=== PATIENT | female | born 1955 | race Caucasian/White ===

== ENCOUNTER 2016-09-15 08:05 | Outpatient (CLI) | payer BC | END 2016-09-15 08:06 | disposition home or self-care (01) | DX: Z13.820 Encounter for screening for osteoporosis (principal); M85.88 Other specified disorders of bone density and structure, other site; Z78.0 Asymptomatic menopausal state ==

== ENCOUNTER 2020-03-06 10:59 | Outpatient (CLI) | payer MEDICARE, OTHER ==
--- NOTE | 2020-03-06 11:56 | CT Report ---
PROCEDURE: HEAD WO INDICATIONS: HEADACHE TECHNIQUE: Noncontrast 4.5 mm thick angled axial sections acquired from the foramen magnum to the vertex. For r adiation dose reduction, the following was used: automated exposure control, adjustment of mA and/or kV according to patient size. COMPARISON: None. FINDINGS: Image quality: Excellent. CSF spaces: Basal cisterns are patent. No extra-axial fluid collections. Ventricles are normal in size and shape. Brain: No midline shift. No intracranial masses or hemorrhage. Cheney-white matter interface is norm al. Skull and face: Calvarium and visualized facial bones are intact, without suspicious lesions. Sinuses: Visualized sinuses and mastoids are clear except for moderate partial opacification of the right mastoid air cells. IMPRESSION: No brain abnormality found. Moderate opacification of the right mastoid air cells to the degree that mastoiditis may explain current symptomatology. Reviewed by: Enrique Hernandez MD on 03/06/2020 11:55 AM PDT Approved by: Enrique Hernandez MD on 03/06/2020 11:55 AM PDT Station ID: [id number]
== END 2020-03-06 11:00 | disposition home or self-care (01) ==
LOC: DI 10:59
PROVIDERS: ATTEND Nurse Practitioner Family
DX: R51 Headache (principal)
CPT/HCPCS: 70450

== ENCOUNTER 2021-05-06 13:21 | Outpatient (CLI) | payer MEDICARE, OTHER ==
--- NOTE | 2021-05-06 16:40 | XRAY Report ---
PROCEDURE: Lumbar Spine 2 View INDICATIONS: LOW BACK PAIN TECHNIQUE: 3 views of the lumbar spine were acquired. COMPARISON: None. FINDINGS: Bones: 5 coz-zbl-pzbhzoy vertebrae are present. There is normal bony alignment. No vertebral body compression fractures. No suspicious bony lesions. Advanced multilevel degenerative disc space loss . Prominent lower lumbar facet arthropathy. Suspect canal stenosis. Soft tissues: Overlying bowel gas pattern is normal. No suspicious soft tissue calcifications. IMPRESSION: Relatively dense degenerative change. Suspect canal stenosis. No evidence acute bony abn ormality of the lumbar spine. If clinical suspicion and/or symptoms persist, further assessment with repeat plain films or advanced imaging (e.g., CT, MRI, or bone scan) may be helpful for further assessment. Reviewed by: Souleymane Chinchilla MD on 05/06/2021 4:39 PM PDT Approved by: Souleymane Chinchilla MD on 05/06/2021 4:39 PM PDT Station ID: [id number]
--- NOTE | 2021-05-07 09:28 | XRAY Report ---
PROCEDURE: Hips 2V BILAT INDICATIONS: PAIN IN RIGHT HIP; PAIN IN LEFT HIP TECHNIQUE: 2 views of the hips were acquired. COMPARISON: None. FINDINGS: Bones: No fractures or dislocations. No suspicious bony lesions. The visualized pelvic ring appear s intact. Mild symmetric hip and sacroiliac joint degeneration bilaterally. Jwambgeh-cz-badyzo degen erative disc disease in the visualized lower lumbar spine. Soft tissues: No suspicious soft tissue calcifications or masses. Bowel gas pattern is nonobstructi ve. IMPRESSION: 1. No fracture or dislocation. 2. 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 3. Jvazlxbn-mm-sisohc degenerative disc and facet disease in visualized lower lumbar spine. Reviewed by: Yaron Van MD on 05/07/2021 9:27 AM PDT Approved by: Yaron Van MD on 05/07/2021 9:27 AM PDT Station ID: [id number]
== END 2021-05-06 13:22 | disposition home or self-care (01) ==
LOC: DI.S 13:21
PROVIDERS: ATTEND Nurse Practitioner Family
DX: M47.816 Spondylosis without myelopathy or radiculopathy, lumbar region (principal); M16.0 Bilateral primary osteoarthritis of hip; M51.36 Other intervertebral disc degeneration, lumbar region

== ENCOUNTER 2021-05-13 15:04 | Outpatient (CLI) | payer MEDICARE, OTHER ==
--- NOTE | 2021-05-13 15:38 | DEXA Report ---
PROCEDURE: Dexa Spine and/or Hip INDICATIONS: THYROID NODULE, OSTEOPENIA TECHNIQUE: Dual energy x-ray absorptiometry (DXA) was performed on a [employer] System. Regions measur ed are the AP Spine, femoral neck, and if needed forearm. COMPARISON: 09/15/2016. FINDINGS: Lumbar Spine: Bone Mineral Density 1.100 g/cm/cm,T score -0.7. There is interval 2% decrease in total lumbar spin e bone mineral density. Left Hip: Bone Mineral Density 0.908 g/cm/cm,T score -0.8. There is interval 5.7% decrease in left total hip d ensity. Left Femoral Neck: Bone Mineral Density 0.759 g/cm/cm, T score -2.0. (T score greater or equal to -1.0: NORMAL) (T score from -1.1 to -2.4: OSTEOPENIA) (T score less than or equal to -2.5 to: OSTEOPOROSIS) Impression: Osteopenia. Patients with diagnosis of osteoporosis or osteopenia should have regular bone mineral density assess ment. For those eligible for Medicare, routine testing is allowed once every 2 years. Testing frequ ency can be increased for patients who have rapidly progressing disease or for those who are receivin g medical therapy to restore bone mass. Reviewed by: Ben Brunson MD on 05/13/2021 3:36 PM PDT Approved by: Ben Brunson MD on 05/13/2021 3:36 PM PDT Station ID: [id number]
--- NOTE | 2021-05-14 09:04 | Ultrasound Report ---
PROCEDURE: Head or Neck Soft Tissue INDICATIONS: THYROID NODULE, OSTEOPENIA TECHNIQUE: Real-time scanning was performed of the thyroid gland, with image documentation. COMPARISON: None FINDINGS: Right: Thyroid lobe measures 5.3 x 1.3 x 1.5 cm, and is homogeneous in echotexture. Left: Thyroid lobe measures 5.0 x 1.2 x 1.6 cm, and is homogenous in echotexture. Isthmus: 3 mm thick. Nodule number: One Location: Right middle lobe Size: 0.5 x 0.4 x 0.3 cm. Composition: Cystic Echogenicity: Anechoic Shape: wider than tall. Margins: Smooth Echogenic foci: Peripheral Total points: 2 ACR TI-RADS category: 2 Nodule number: Two Location: Left inferior Size: 0.6 x 0.5 x 0.6 cm. Composition: Solid Echogenicity: Hypoechoic Shape: wider than tall. Margins: Lobulated Echogenic foci: Macrocalcification Total points: 5 ACR TI-RADS category: 4 IMPRESSION: 1. Lesion 1 is category 2 with no additional follow-up recommended. 2. Lesion 2 is considered category 4. Secondary to size, no additional follow-up is recommended. ACR TI-RADS definitions and recommendations: TI-RADS 1 (benign): 0 points. FNA not needed. TI-RADS 2 (not suspicious): 2 points. FNA not needed. TI-RADS 3 (mildly suspicious): 3 points. ? FNA if 2.5 cm or larger, follow up if 1.5 cm or larger (at 1, 3, and 5 years). TI-RADS 4 (moderately suspicious): 4-6 points. ? FNA if 1.5 cm or larger, follow up if 1 cm or larger (at 1, 2, 3, and 5 years). TI-RADS 5 (highly suspicious): 7 points or more. ? FNA if 1 cm or larger, follow up if 0.5 cm or larger (every year for 5 years). Reviewed by: Isabell Benjamin MD on 05/14/2021 9:03 AM PDT Approved by: Isabell Benjamin MD on 05/14/2021 9:03 AM PDT Station ID: [id number]
== END 2021-05-13 15:05 | disposition home or self-care (01) ==
LOC: DI 15:04
PROVIDERS: ATTEND Nurse Practitioner Family
DX: E04.2 Nontoxic multinodular goiter (principal); M85.88 Other specified disorders of bone density and structure, other site

== ENCOUNTER 2021-12-26 11:41 | Outpatient (CLI) | payer MEDICARE, OTHER ==
[2021-12-26 12:23] LABS: CALCIUM 9.7 mg/dL (8.5-10.3); CREATININE 0.7 mg/dL (0.4-1.0); POTASSIUM 4.2 mmol/L (3.5-5.0)
[2021-12-26] MEDS ORDERED: IOPAMIDOL-300 100 ML VIAL ONE (12:33)
[2021-12-26] MEDS ORDERED: IOPAMIDOL-300 100 ML VIAL IVP ONE (13:29)
--- NOTE | 2021-12-26 14:31 | CT Report ---
PROCEDURE: IVP INDICATIONS: HEMATURIA CONTRAST: IV CONTRAST: Isovue 300 ml: 140 PO CONTRAST: *NO PO CONTRAST TECHNIQUE: After the administration of oral and intravenous contrast, 5 mm thick sections acquired from the diap hragms to the symphysis. 5 mm thick coronal and sagittal reformats were acquired. For radiation dos e reduction, the following was used: automated exposure control, adjustment of mA and/or kV accordin g to patient size. COMPARISON: January 05, 2014. FINDINGS: Inferior chest: No focal consolidation, pleural effusion, or pneumothorax. No cardiomegaly. Trace pe ricardial effusion. Gallbladder: The gallbladder is distended with a smooth thin wall. Biliary tree: No intra-or extrahepatic biliary ductal dilatation. Liver: The liver demonstrates normal enhancement, size, and contour. Spleen: Normal enhancement, size and morphology is seen. Pancreas: No contour deforming mass or inflammatory change. Adrenals: Normal size without masses. Kidneys/ureters: Normal size and morphology. No solid masses or hydronephrosis. Vasculature: No evidence of aneurysm or other significant vascular pathology. Lymphatic system: No pathologic enlargement by size criteria. GI/mesentery: No evidence of intestinal obstruction. Normal appearance of the appendix. Peritoneum/Retroperitoneum: No free intraperitoneal gas or large collection. Urinary bladder: The urinary bladder is distended with a smooth thin wall. Pelvic organs: No significant abnormality. Bones/soft tissues: No significant abnormality. Levocurvature of the lumbar spine with multifocal deg enerative change. Minimal superior endplate compression deformity at L2, unchanged. IMPRESSION: 1.No significant interval change. Reviewed by: Robin Benoit MD on 12/26/2021 2:30 PM PDT Approved by: Robin Benoit MD on 12/26/2021 2:30 PM PDT Station ID: [id number]
== END 2021-12-26 11:42 | disposition home or self-care (01) ==
LOC: DI 11:41
PROVIDERS: ATTEND Urology
DX: R31.21 Asymptomatic microscopic hematuria (principal)
CPT/HCPCS: 36415; 74178; 80048; Q9967

== ENCOUNTER 2024-02-18 09:43 | Outpatient (CLI) | payer MEDICARE, OTHER ==
--- NOTE | 2024-02-18 12:19 | DEXA Report ---
PROCEDURE: Dexa Spine and/or Hip INDICATIONS: OSTEOPENIA TECHNIQUE: Dual energy x-ray absorptiometry (DXA) was performed on a P2i System. Regions measur ed are the AP Spine, femoral neck, and if needed forearm. COMPARISON: DEXA on 05/13/2021, 09/15/2016. FINDINGS: Lumbar Spine: Bone Mineral Density: 1.019 g/cm/cm,T score: -1.2. Osteopenia Left Femoral Neck: Bone Mineral Density: 0.756 g/cm/cm, T score: -2.0. Osteopenia. Left Hip: Bone Mineral Density: 0.900 g/cm/cm,T score: -9 is 0.9. Normal (T score greater or equal to -1.0: NORMAL) (T score from -1.1 to -2.4: OSTEOPENIA) (T score less than or equal to -2.5 to: OSTEOPOROSIS) Impression: 1. By WHO criteria, this patient has low bone density (osteopenia). 2. Compared to the last exam dated 05/13/2021, the patient's bone mineral density in lumbar spine and left hip is not statistically significantly changed. Patients with diagnosis of osteoporosis or osteopenia should have regular bone mineral density assess ment. For those eligible for Medicare, routine testing is allowed once every 2 years. Testing frequ ency can be increased for patients who have rapidly progressing disease or for those who are receivin g medical therapy to restore bone mass. Reviewed by: Yaron Van MD on 02/18/2024 12:17 PM PDT Approved by: Yaron Van MD on 02/18/2024 12:17 PM PDT Station ID: [id number]
== END 2024-02-18 09:44 | disposition home or self-care (01) ==
LOC: DI 09:43
PROVIDERS: ATTEND Registered Nurse
DX: M85.89 Other specified disorders of bone density and structure, multiple sites (principal)